=== PATIENT | female | born 1990 | race American Indian/Alaskan Native ===

== ENCOUNTER 2022-02-16 12:53 | Emergency (ER) | payer MEDICAID ==
[2022-02-16 15:58] VITALS: BP 143/89
--- NOTE | 2022-02-16 16:39 | Emergency Department Report ---
ED ENT HPI - General Chief complaint: Sore Throat Stated complaint: THROAT PAIN Time Seen by Provider: 02/16/22 15:52 Source: patient Mode of arrival: Ambulatory Limitations: No Limitations - History of Present Illness Initial comments: 32-year-old female with history of tonsillectomy as a child presents with sore throat. Patient reports symptoms started yesterday, difficulty swallowing, difficulty speaking, unable to eat. Symptoms associated with dry cough, body aches, fever. Positive sick contacts, otherwise no nausea vomiting abdominal pain, no chest pain, no shortness of breath, no weakness dizziness headache or vision changes. MD complaint: sore throat -: Gradual Severity: moderate Quality: sharp Consistency: constant Improves with: none Worsens with: swallowing Associated Symptoms: fever - Related Data Previous Rx's Medication Instructions Recorded Last Taken Type Acetamin/Codeine 120-12Mg/5 ml 5 ml PO Q8H PRN #60 oz 02/16/22 Unknown Rx [Tylenol/Codeine] Amoxicillin/K Clav Tab [Augmentin 1 tab PO Q12HR #20 tab 02/16/22 Unknown Rx 875 mg] Ibuprofen [Motrin 600 MG tab] 600 mg PO Q8H PRN #21 tablet 02/16/22 Unknown Rx Phenol 1.4% [Chloraseptic] 1 spray MM PRN #1 bottle 02/16/22 Unknown Rx Allergies Allergy/AdvReac Type Severity Reaction Status Date / Time No Known Allergies Allergy Unverified 02/16/22 13:14 ED Dental HPI - General Chief complaint: Sore Throat Stated complaint: THROAT PAIN Time Seen by Provider: 02/16/22 15:52 Source: patient Mode of arrival: Ambulatory Limitations: No Limitations - Related Data Previous Rx's Medication Instructions Recorded Last Taken Type Acetamin/Codeine 120-12Mg/5 ml 5 ml PO Q8H PRN #60 oz 02/16/22 Unknown Rx [Tylenol/Codeine] Amoxicillin/K Clav Tab [Augmentin 1 tab PO Q12HR #20 tab 02/16/22 Unknown Rx 875 mg] Ibuprofen [Motrin 600 MG tab] 600 mg PO Q8H PRN #21 tablet 02/16/22 Unknown Rx Phenol 1.4% [Chloraseptic] 1 spray MM PRN #1 bottle 02/16/22 Unknown Rx Allergies Allergy/AdvReac Type Severity Reaction Status Date / Time No Known Allergies Allergy Unverified 02/16/22 13:14 ED Review of Systems ROS: Stated complaint: THROAT PAIN Other details as noted in HPI Constitutional: chills, fever Eyes: denies: eye pain ENT: throat pain. denies: ear pain, hearing loss, congestion Respiratory: cough. denies: orthopnea Cardiovascular: denies: chest pain, palpitations, dyspnea on exertion Endocrine: denies: excessive sweating, intolerance to cold, intolerance to heat Gastrointestinal: denies: abdominal pain, nausea, vomiting Musculoskeletal: myalgia. denies: back pain Neurological: denies: headache, weakness, paresthesias ED Past Medical Hx - Past Medical History Previous Medical History?: No - Surgical History Past Surgical History?: Yes Additional Surgical History: Tonsilectomy - Social History Smoking Status: Light Tobacco Smoker Substance Use Type: None - Medications Home Medications: Home Medications Medication Instructions Recorded Confirmed Last Taken Type Acetamin/Codeine 120-12Mg/5 ml 5 ml PO Q8H PRN #60 oz 02/16/22 Unknown Rx [Tylenol/Codeine] Amoxicillin/K Clav Tab [Augmentin 1 tab PO Q12HR #20 tab 02/16/22 Unknown Rx 875 mg] Ibuprofen [Motrin 600 MG tab] 600 mg PO Q8H PRN #21 tablet 02/16/22 Unknown Rx Phenol 1.4% [Chloraseptic] 1 spray MM PRN #1 bottle 02/16/22 Unknown Rx ED Physical Exam - General Limitations: No Limitations General appearance: alert, in no apparent distress, obese (Puny appearing uncomfortable for) - Head Head exam: Present: atraumatic (Uncomfortable appearing) - Eye Eye exam: Absent: periorbital swelling, periorbital tenderness - ENT ENT exam: Present: mucous membranes dry, other (Bilateral tonsillar pharyngeal erythema no exudate or enlargement, midline uvula, no trismus no drooling tolerating oral secretions) - Neck Neck exam: Present: normal inspection, full ROM, lymphadenopathy - Respiratory Respiratory exam: Present: normal lung sounds bilaterally. Absent: respiratory distress, chest wall tenderness, decreased breath sounds - Cardiovascular Cardiovascular Exam: Present: regular rate, normal rhythm - GI/Abdominal GI/Abdominal exam: Present: soft, normal bowel sounds. Absent: tenderness - Extremities Exam Extremities exam: Present: normal inspection, full ROM, normal capillary refill - Back Exam Back exam: Present: normal inspection, full ROM - Neurological Exam Neurological exam: Present: alert, oriented X3, CN II-XII intact, normal gait - Skin Skin exam: Present: warm, intact, normal color ED Course Vital Signs 02/16/22 02/16/22 13:18 15:50 Temperature 99.6 F 99.3 F Pulse Rate 97 H 94 H Respiratory 20 14 Rate Blood Pressure 143/89 Blood Pressure 122/79 143/89 [Right] O2 Sat by Pulse 97 99 Oximetry ED Medical Decision Making - Medical Decision Making No trismus no drooling, no airway obstruction, able to tolerate oral secretions, pain fever addressed to the emergency department, she is able to swallow juice and liquids before discharge. Vital signs are stable, discharged with supportive therapy including antibiotics, pain management, and ENT referral. Patient remained stable nontoxic-appearing, afebrile, ambulating steadily without assistance. Gone over ED findings with patient as well as plan for follow-up. Also discussed return precautions with patient, all questions and concerns addressed. Patient is stable to be discharged follow-up outpatient. Audio voice dictation device used, hence the chart might contain some dictation errors, mispronunciations, wrong spelling and wrong verbiage. Abnormal Labs 02/16/22 13:40 Group A Strep Rapid Positive A Critical care attestation.: If time is entered above; I have spent that time in minutes in the direct care of this critically ill patient, excluding procedure time. ED Disposition Clinical Impression: Febrile illness, acute, Strep pharyngitis Disposition: HOME / SELF CARE / HOMELESS Is pt being admited?: No Does the pt Need Aspirin: No Condition: Stable Instructions: Strep Throat, Adult, [id number] Prescriptions: Amoxicillin/K Clav Tab [Augmentin 875 mg] 1 tab PO Q12HR #20 tab Phenol 1.4% [Chloraseptic] 1 spray MM PRN #1 bottle Ibuprofen [Motrin 600 MG tab] 600 mg PO Q8H PRN #21 tablet PRN Reason: Pain Acetamin/Codeine 120-12Mg/5 ml [Tylenol/Codeine] 5 ml PO Q8H PRN #60 oz PRN Reason: Pain Referrals: YONI PEREZ MD [Staff Physician] - 3-5 Days Forms: Work/School Release Form(ED)
[2022-02-16] MEDS ORDERED: dexAMETHasone 4 MG/ML VIAL IM ONE (16:43)
[2022-02-16] MEDS ORDERED: KETOROLAC 30 MG/1 ML INJ IM ONE (16:43)
== END 2022-02-16 17:40 | disposition home or self-care (01) ==
LOC: ED 12:53
DX: R50.9 Fever, unspecified (principal); J02.0 Streptococcal pharyngitis; Z87.891 Personal history of nicotine dependence
CPT/HCPCS: 87430; 96372; 99283; J1100; J1885